=== PATIENT | female | born 1945 | race Two or more races ===

== ENCOUNTER 2022-04-13 09:15 | Emergency (ER) | payer OTHER ==
[~2022-04-13] VITALS: Ht 165.1 cm; Wt 97.5 kg
[2022-04-13] MEDS ORDERED: ELIQUIS5 MG PO (09:38)
[2022-04-13] MEDS ORDERED: COZAAR25 MG (09:38)
[2022-04-13] MEDS ORDERED: CARDIZEM30 MG PO (09:38)
[2022-04-13] MEDS ORDERED: GLIMEPIRIDE1 M1 (09:38)
[2022-04-13] MEDS ORDERED: CLONAZEPAM0.125 MG PO (09:38)
[2022-04-13] MEDS ORDERED: LEXAPRO5 MG PO (09:38)
[2022-04-13] MEDS ORDERED: DICLOFENAC POTA50 MG PO (16:17)
[2022-04-13] MEDS ORDERED: ORPHENADRINE C100 MG PO (16:17)
== END 2022-04-13 17:22 ==
LOC: ER 09:15
DX: S32.059A Unspecified fracture of fifth lumbar vertebra, initial encounter for closed fracture (principal); W19.XXXA Unspecified fall, initial encounter; Z91.81 History of falling; Y93.9 Activity, unspecified; Y92.090 Kitchen in other non-institutional residence as the place of occurrence of the external cause; Y99.9 Unspecified external cause status; M43.17 Spondylolisthesis, lumbosacral region; M85.88 Other specified disorders of bone density and structure, other site; E11.9 Type 2 diabetes mellitus without complications; I10 Essential (primary) hypertension